=== PATIENT | female | born 1980 | race Caucasian/White ===

== ENCOUNTER 2019-04-09 15:09 | Emergency (ER) | payer OTHER ==
[2019-04-09 15:41] VITALS: BP 125/89; O2SAT 98
[2019-04-09] MEDS ORDERED: TRUVADA 200 MG-300 MG TABLET PO STA (15:46)
[2019-04-09] MEDS ORDERED: ISENTRESS PO SCH ×2 (16:00→22:00)
--- NOTE | 2019-04-09 16:08 | ERPHSYRPT ---
- History of Present Illness Source: patient Exam Limitations: no limitations Patient Subjective Stated Complaint: patient stated Dr Lee bends his needles he uses for local injection and when she started to pickle pumper needle the syringe turned and stuck her in the right palm. Triage Nursing Assessment: pt A/O, states has a needls stick injury in right palm thumb area. small needle hole noted. no active bleeding noted. denies pain or disc. Physician History: Pt is a 38 y/o female that was working with Dr Lee today. When she was cleaning the tray post injection one of the syringes turned, and she was stuck by the needle. She presented to the ED, for an employe work up. Timing/Duration: today Severity: mild Location: hands Possible Causes: no cause identified Associated Symptoms: denies symptoms Allergies/Adverse Reactions: No Known Drug Allergies Allergy (Unverified 04/09/19 15:41) Hx Tetanus, Diphtheria Vaccination/Date Given: Yes Hx Influenza Vaccination/Date Given: Yes Hx Pneumococcal Vaccination/Date Given: No Immunizations Up to Date: Yes - Review of Systems Constitutional: No Fever, No Chills Skin: Other (needle stick in the R palm), No Rash Neurological: No Dizziness, No Focal Weakness, No Sensory Changes - Past Medical History Pertinent Past Medical History: Yes Neurological History: No Pertinent History ENT History: No Pertinent History Cardiac History: Hypertension Respiratory History: No Pertinent History Endocrine Medical History: No Pertinent History Musculoskeletal History: No Pertinent History GI Medical History: GERD History: No Pertinent History Psycho-Social History: No Pertinent History Female Reproductive Disorders: Other Other Medical History: PCOS, mitral valve prolapse - Past Surgical History Past Surgical History: Yes Neuro Surgical History: No Pertinent History Cardiac: No Pertinent History Respiratory: No Pertinent History Gastrointestinal: No Pertinent History Genitourinary: No Pertinent History Musculoskeletal: No Pertinent History Female Surgical History: Section - Social History Smoking Status: Former smoker Exposure to second hand smoke: No Drug Use: none Patient Lives Alone: No - Female History Hx Last Menstrual Period: 2 weeks ago Hx Now: No - Nursing Vital Signs Nursing Vital Signs: Initial Vital Signs Temperature 98.0 F 04/09/19 15:10 Pulse Rate 72 04/09/19 15:10 Respiratory Rate 18 04/09/19 15:10 Blood Pressure 125/89 04/09/19 15:10 O2 Sat by Pulse Oximetry 98 04/09/19 15:10 Pain Scale Pain Intensity 0 - Physical Exam General Appearance: no apparent distress, alert Extremity Exam: normal inspection, normal range of motion Neurologic Exam: alert, oriented x 3, cooperative, normal mood/affect, sensation nml, No motor deficits Skin Exam: normal color, warm, dry, other (needle stick ) SpO2: 98 - Course Nursing assessment & vital signs reviewed: Yes Ordered Tests: Active Orders 24 hr Category Date Time Status Wound Care STAT Care 04/09/19 15:46 Active Medication Summary Generic Name Dose Route Start Last Admin Trade Name Freq PRN Reason Stop Dose Admin Emtricitabine/Tenofovir 1 tablet 04/10/19 10:00 Truvada 200 Mg-300 Mg Tablet PO 04/11/19 10:01 DAILY SURAJ Raltegravir 400 mg 04/09/19 16:00 Isentress PO 05/09/19 15:59 STAT SURAJ Raltegravir 400 mg 04/09/19 22:00 Isentress PO 04/11/19 22:01 BID SURAJ Discontinued Medications Generic Name Dose Route Start Last Admin Trade Name Freq PRN Reason Stop Dose Admin Emtricitabine/Tenofovir 1 tablet 04/09/19 15:46 Truvada 200 Mg-300 Mg Tablet PO 04/09/19 15:47 STAT STA - Progress Progress: unchanged Progress Note: 04/09/19 16:07 Pt was seen and examined. She will get protective meds for HIV, and a dose for home. Labs were sent. Pt should f/u. She is cleared for d/c. Will see patient in: office Counseled pt/family regarding: need for follow-up - Departure Departure Disposition: Home Clinical Impression: Needle stick injury Condition: Stable Critical Care Time: No Referrals: [facility] [Primary Care Provider] - Additional Instructions: F/U with Hello Agent for results. Take meds as ordered.
[2019-04-09 17:08] VITALS: PULSE 76
[2019-04-10] MEDS ORDERED: TRUVADA 200 MG-300 MG TABLET PO SCH (10:00)
[2019-04-11 05:01] LABS: HIV Antigen/Antibody Combo Non Reactive (Non Reactive); Hepatitis B Sur Ag Screen Non Reactive (Non Reactive); Hepatitis B Surface Ab.Quant >1000.00 mIU/mL (0.00-8.49); Hepatitis C Antibody by EIA Non Reactive (Non Reactive)
== END 2019-04-09 17:08 | disposition home or self-care (01) ==
LOC: ER - EH 15:09
DX: S61.431A Puncture wound without foreign body of right hand, initial encounter (principal); W46.1XXA Contact with contaminated hypodermic needle, initial encounter; Y93.F9 Activity, other caregiving; Y92.230 Patient room in hospital as the place of occurrence of the external cause; Y99.0 Civilian activity done for income or pay
CPT/HCPCS: 36415; 86317; 86701; 86702; 86803; 87340; 87389; 99283

== ENCOUNTER 2021-05-19 10:05 | Emergency (ER) | payer OTHER ==
[2021-05-19 10:35] VITALS: O2SAT 98
--- NOTE | 2021-05-19 11:42 | XRAY ---
Indication: Status post fall. Comparison: None Portable AP/lateral left knee demonstrates tiny patella spur. No other bony, articular, or soft tissue abnormalities.
[2021-05-19 11:44] VITALS: BP 124/99; PULSE 86
--- NOTE | 2021-05-19 11:44 | ERPHSYRPT ---
- History of Present Illness Time Seen by Provider: 05/19/21 10:35 Exam Limitations: no limitations Patient Subjective Stated Complaint: " I was in the OR Break out room and I tripped over some broken down boxes causing me to fall down onto my left knee. It doesn't really hurt right now". Triage Nursing Assessment: Pt works at [employer] and was sent down by HR for fall at work. 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 She said she fell onto left knee but landed onto boxes so she believes they "broke her fall". Pt denies pain at this time, knee is tender upon exam. Pt is alert and oriented x3. Skin is pink, warm, and dry. Pt respirations are easy and unlabored. Denies any further injuries or complaints. Physician History: Patient is a 40-year-old female presents to our ED for evaluation of knee pain. Patient was at work here at [facility] [employer] OR. She reportedly went into a break room and tripped over boxes. Patient fell onto her left knee. Patient states the boxes broke the fall. Patient was advised to come to our ED for evaluation. Patient complains of pain at the distal patellar pole and anterolateral knee. No obvious swelling. There is tenderness to palpation over the involved area. No other injuries reported. The fall was mechanical. The fall was not associated with any neuro or cardiovascular symptomology. Patient otherwise feels well. Symptoms are mild in intensity. Patient 2-3 out of 10. Patient declined pain medication. Weightbearing worsens symptoms somewhat. Patient voices no other complaints concerns at this time. Method of Injury: fell Occurred: just prior to arrival Quality: constant Severity of Pain-Max: moderate Severity of Pain-Current: mild Lower Extremities Pain: knee: left Modifying Factors: Improves With: movement Associated Symptoms: none Allergies/Adverse Reactions: No Known Drug Allergies Allergy (Verified 05/19/21 10:35) Home Medications: Famotidine 20 mg PO BID 05/19/21 [History] Metformin HCl 500 mg PO BID 05/19/21 [History] Sertraline HCl [Zoloft] 100 mg PO DAILY 05/19/21 [History] Spironolactone 25 mg PO BID 05/19/21 [History] Hx Tetanus, Diphtheria Vaccination/Date Given: Yes Hx Influenza Vaccination/Date Given: Yes Hx Pneumococcal Vaccination/Date Given: No Immunizations Up to Date: Yes Travel Risk - International Travel Have you traveled outside of the country in past 3 weeks: No - Coronavirus Screening Are you exhibiting any of the following symptoms?: No Close contact with a COVID-19 positive Pt in past 14-21 Days: No - Vaccine Status Have you recieved a Covid-19 vaccination: Yes Center Machine Set Up Operator: Moderna - Vaccination Dates Date of 2cond Vaccination (if applicable): oct 2020 - Review of Systems Constitutional: No Symptoms, No Fever, No Chills Eyes: No Symptoms Ears, Nose, & Throat: No Symptoms Respiratory: No Symptoms, No Cough, No Dyspnea Cardiac: No Symptoms, No Chest Pain, No Edema, No Syncope Abdominal/Gastrointestinal: No Symptoms, No Abdominal Pain, No Nausea, No Vomiting, No Diarrhea Genitourinary Symptoms: No Symptoms, No Dysuria Musculoskeletal: No Symptoms, No Back Pain, No Neck Pain Skin: No Symptoms, No Rash Neurological: No Symptoms, No Dizziness, No Focal Weakness, No Sensory Changes Psychological: No Symptoms Endocrine: No Symptoms Hematologic/Lymphatic: No Symptoms Immunological/Allergic: No Symptoms All Other Systems: Reviewed and Negative - Past Medical History Pertinent Past Medical History: Yes Neurological History: No Pertinent History ENT History: No Pertinent History Cardiac History: Hypertension Respiratory History: No Pertinent History Endocrine Medical History: No Pertinent History Musculoskeletal History: No Pertinent History GI Medical History: GERD History: No Pertinent History Psycho-Social History: Anxiety, Depression Female Reproductive Disorders: Other Other Medical History: PCOS - Past Surgical History Past Surgical History: Yes Neuro Surgical History: No Pertinent History Cardiac: No Pertinent History Respiratory: No Pertinent History Gastrointestinal: No Pertinent History Genitourinary: No Pertinent History Musculoskeletal: No Pertinent History Female Surgical History: Section - Social History Smoking Status: Never smoker Exposure to second hand smoke: No Drug Use: none Patient Lives Alone: No - Female History Hx Last Menstrual Period: 04/24/2021 Hx Now: No - Nursing Vital Signs Nursing Vital Signs: Initial Vital Signs Temperature 97.1 F 05/19/21 10:29 Pulse Rate 84 05/19/21 10:29 Respiratory Rate 18 05/19/21 10:29 Blood Pressure 145/90 05/19/21 10:29 O2 Sat by Pulse Oximetry 98 05/19/21 10:29 Pain Scale Pain Intensity 0 - Physical Exam General Appearance: no apparent distress, alert Eyes, Ears, Nose, Throat Exam: normal ENT inspection, TMs normal Neck Exam: non-tender, supple Cardiovascular/Respiratory Exam: chest non-tender, normal breath sounds, regular rate/rhythm, no respiratory distress Gastrointestinal/Abdominal Exam: non-tender, guarding Back Exam: normal inspection, No vertebral tenderness Hips Exam: bilateral: non-tender, normal inspection, normal range of motion, no evidence of injury Legs Exam: bilateral leg: non-tender, normal inspection, normal range of motion, no evidence of injury Knees Exam: right knee: non-tender, normal inspection, normal range of motion, no evidence of injury, left knee: pain, soft tissue tenderness, other (The involved extremity is neurovascular intact distally. Compartments are soft. Cap refill less than 2 seconds. Slight swelling observed at the left knee. No abrasions or lacerations.) Ankle Exam: bilateral ankle: non-tender, normal inspection, normal range of motion, no evidence of injury Foot Exam: bilateral foot: non-tender, normal inspection, normal range of motion, no evidence of injury Neuro/Tendon Exam: normal sensation, normal motor functions Mental Status Exam: alert, oriented x 3, cooperative Skin Exam: normal color, warm, dry SpO2 Interpretation: normal SpO2: 98 O2 Delivery: Room Air - Course Nursing assessment & vital signs reviewed: Yes - Radiology Exams Knee X-ray Interpretation: Teleradiologist Report (No fractures or dislocations. Small patellar spur.) Ordered Tests: Active Orders 24 hr Category Date Time Status KNEE (1 OR 2 VIEW) Stat Exams 05/19/21 11:07 Completed - Progress Progress: improved Progress Note: Patient states she feels well. She declined pain medication. Patient ambulatory in our ED. Patient requesting to return back to work today. Patient voices no other complaints concerns at this time. X-rays negative for fracture dislocation. No indication for further work-up at this time. Will discharge home. Patient agrees to follow-up with primary care doctor within 48 hours for reevaluation. 05/19/21 11:53 Portions of this note were created with voice recognition technology. There may be grammatical, spelling, punctuation or sound alike errors 05/19/21 11:53 Counseled pt/family regarding: diagnosis, need for follow-up, rad results - Departure Departure Disposition: Home Clinical Impression: Fall, patella spur, Knee contusion Condition: Stable Critical Care Time: No Referrals: [facility]OY[facility],EMPLOYEE [facility] [Primary Care Provider] - Additional Instructions: Discharge/Care Plan DANGELO FITCH was seen on 05/19/21 in the Emergency Room. The patient was counseled regarding Diagnosis,Lab results, Imaging studies, need for follow up and when to return to the Emergency Room. Prescriptions given: Discharge Note I have spoken with the patient and/or caregivers. I have explained the patient's condition, diagnosis and treatment plan based on the information available to me at this time. I have answered the patient's and/or caregiver's questions and addressed any concerns. The patient and/or caregivers have as good understanding of the patient's diagnosis, condition and treatment plan as can be expected at this point. The vital signs have been stable. The patient's condition is stable and appropriate for discharge from the emergency department. The patient will pursue further outpatient evaluation with the primary care physician or other designated or consulting physician as outlined in the discharge instructions. The patient and/or caregivers are agreeable to this plan of care and follow-up instructions have been explained in detail. The patient and/or caregivers have received these instruction. The patient/and or caregivers are aware that any significant change in condition or worsening of symptoms should prompt an immediate return to this or the closest emergency department or call 911.
== END 2021-05-19 12:01 | disposition home or self-care (01) ==
LOC: ED 10:05
DX: M77.30 Calcaneal spur, unspecified foot (principal); S80.02XA Contusion of left knee, initial encounter; W01.198A Fall on same level from slipping, tripping and stumbling with subsequent striking against other object, initial encounter; Y93.89 Activity, other specified; Y92.238 Other place in hospital as the place of occurrence of the external cause; Y99.0 Civilian activity done for income or pay
CPT/HCPCS: 73560; 99283

== ENCOUNTER 2022-07-04 18:35 | Emergency (ER) | payer OTHER ==
[2022-07-04 18:57] VITALS: O2SAT 99
[2022-07-04] MEDS ORDERED: Sodium Chloride 0.9% 1000 ML 1,000 ML IV SCH (19:30)
--- NOTE | 2022-07-04 19:33 | ERPHSYRPT ---
- History of Present Illness Time Seen by Provider: 07/04/22 19:50 Source: patient Exam Limitations: no limitations Patient Subjective Stated Complaint: pt states "I was working on my case when I got a runny feeling. 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 She was finishing her case when she became extremely short of breath. She noted she had slightly elevated blood pressure 147/103 her O2 sats were acceptable but she states she "cannot get a deep breath. She did report that she recently started Concerta and wonders if I could be an etiology for her dyspnea. Timing/Duration: today Activities at Onset: other (Working in surgery) Severity of Dyspnea-Max: moderate Severity of Dyspnea-Current: moderate Possible Cause: no prior episodes Modifying Factors: Improves With: nothing Associated Symptoms: chest pain/discomfort, heaviness Allergies/Adverse Reactions: No Known Drug Allergies Allergy (Verified 07/04/22 18:42) Home Medications: Famotidine 20 mg PO BID 05/19/21 [History] Metformin HCl 500 mg PO BID 05/19/21 [History] Sertraline HCl [Zoloft] 100 mg PO DAILY 05/19/21 [History] Spironolactone 25 mg PO BID 05/19/21 [History] Methylphenidate HCl [Concerta] 18 mg PO 07/04/22 [History] Hx Tetanus, Diphtheria Vaccination/Date Given: Yes Hx Influenza Vaccination/Date Given: Yes Hx Pneumococcal Vaccination/Date Given: No Immunizations Up to Date: Yes Travel Risk - International Travel Have you traveled outside of the country in past 3 weeks: No - Coronavirus Screening Are you exhibiting any of the following symptoms?: Yes Symptoms: Shortness of Breath Close contact with a COVID-19 positive Pt in past 14-21 Days: No - Vaccine Status Have you recieved a Covid-19 vaccination: Yes 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 - Vaccination Dates Date of 2cond Vaccination (if applicable): oct 2020 - Review of Systems Constitutional: No Fever, No Chills Eyes: No Symptoms Ears, Nose, & Throat: No Symptoms Respiratory: No Cough, No Dyspnea Cardiac: No Chest Pain, No Edema, No Syncope Abdominal/Gastrointestinal: No Abdominal Pain, No Nausea, No Vomiting, No Diarrhea Genitourinary Symptoms: No Dysuria Musculoskeletal: No Back Pain, No Neck Pain Skin: No Rash Neurological: No Dizziness, No Focal Weakness, No Sensory Changes Psychological: No Symptoms Endocrine: No Symptoms All Other Systems: Reviewed and Negative - Past Medical History Pertinent Past Medical History: Yes Neurological History: No Pertinent History ENT History: No Pertinent History Cardiac History: Hypertension Respiratory History: No Pertinent History Endocrine Medical History: No Pertinent History Musculoskeletal History: No Pertinent History GI Medical History: GERD History: No Pertinent History Psycho-Social History: Anxiety, Depression Female Reproductive Disorders: Other Other Medical History: PCOS - Past Surgical History Past Surgical History: Yes Neuro Surgical History: No Pertinent History Cardiac: No Pertinent History Respiratory: No Pertinent History Gastrointestinal: No Pertinent History Genitourinary: No Pertinent History Musculoskeletal: No Pertinent History Female Surgical History: Section - Social History Smoking Status: Former smoker Exposure to second hand smoke: No Drug Use: none Patient Lives Alone: No - Female History Hx Now: No - Nursing Vital Signs Nursing Vital Signs: Initial Vital Signs Temperature 98.5 F 07/04/22 18:44 Pulse Rate 90 07/04/22 18:44 Respiratory Rate 16 07/04/22 18:44 Blood Pressure 138/101 07/04/22 18:44 O2 Sat by Pulse Oximetry 99 07/04/22 18:44 Pain Scale Pain Intensity 0 - Physical Exam General Appearance: mild distress, alert Eye Exam: PERRL/EOMI Neck Exam: normal inspection, supple Cardiovascular/Chest Exam: normal heart sounds, regular rate/rhythm Abdominal/Gastrointestinal Exam: soft, No tenderness, No distention, No mass Extremity Exam: non-tender, normal range of motion, normal inspection, no calf tenderness, no pedal edema Neurologic Exam: alert, oriented x 3, cooperative, follow up manager II-XII nml as tested, sensation nml, No motor deficits Skin Exam: normal color, warm, No dry SpO2 Interpretation: normal SpO2: 99 O2 Delivery: Room Air - Course Nursing assessment & vital signs reviewed: Yes EKG Interpreted by Me: RATE (96), Sinus Rhythm, NORMAL AXIS, NORMAL INTERVALS, NORMAL QRS, NORMAL ST-T - Radiology Exams Chest X-ray Interpretation: Interpreted by me, Negative Ordered Tests: Active Orders 24 hr Category Date Time Status Clean Catch Urine Specimen STAT Care 07/04/22 19:32 Active EKG-ER Only STAT Care 07/04/22 19:28 Active IV Insertion STAT Care 07/04/22 19:28 Active CHEST 1 VIEW (PORTABLE) Stat Exams 07/04/22 19:30 Taken CBC W DIFF Stat Lab 07/04/22 19:55 Completed CMP Stat Lab 07/04/22 19:55 Received D-DIMER QUANTITATIVE Stat Lab 07/04/22 19:55 Completed Lactic Acid Stat Lab 07/04/22 20:00 Completed MAGNESIUM Stat Lab 07/04/22 19:55 Received NT PRO BNP Stat Lab 07/04/22 19:55 Received PROTIME WITH INR Stat Lab 07/04/22 19:55 Completed TROPONIN Q4H Lab 07/04/22 19:55 Received TROPONIN Q4H Lab 07/04/22 23:30 Ordered TROPONIN Q4H Lab 07/05/22 03:30 Ordered UA W/RFX CULTURE Stat Lab 07/04/22 Ordered Urine Triage Profile Stat Lab 07/04/22 Ordered VENOUS BLOOD GAS Stat Lab 07/04/22 20:00 Completed Medication Summary Generic Name Dose Route Start Last Admin Trade Name Freq PRN Reason Stop Dose Admin Sodium Chloride 1,000 mls @ 100 mls/hr 07/04/22 19:30 07/04/22 20:03 Sodium Chloride 0.9% 1000 Ml IV 08/03/22 19:29 100 mls/hr .Q10H SURAJ Administration Discontinued Medications Generic Name Dose Route Start Last Admin Trade Name Freq PRN Reason Stop Dose Admin Ondansetron HCl 4 mg 07/04/22 20:01 07/04/22 20:03 Ondansetron Hcl 4 Mg/2 Ml Vial IV 07/04/22 20:02 4 mg STAT ONE Administration Ondansetron HCl Confirm 07/04/22 20:02 Ondansetron Hcl 4 Mg/2 Ml Vial Administered 07/04/22 20:03 Dose 4 mg .ROUTE .STK-MED ONE Lab/Rad Data: Laboratory Result Diagrams 07/04/22 19:55 Laboratory Results 07/04/22 07/04/22 07/04/22 Range/Units 20:00 20:00 19:55 WBC (4.0-10.5) x10^3/uL RBC (4.1-5.4) x10^6/uL Hgb (12.0-16.0) g/dL Hct (35-47) % MCV (78-100) fL MCH (26-32) pg MCHC (32-36) g/dL RDW (11.5-14.0) % Plt Count (150-450) x10^3/uL MPV (7.5-11.0) fL Gran % (36.0-66.0) % Immature Gran % (Auto) (0.00-0.4) % Nucleat RBC Rel Count (0.00-0.1) % Eos # (Auto) (0-0.5) x10^3/uL Immature Gran # (Auto) (0.00-0.03) x10^3u/L Absolute Lymphs (auto) (1.0-4.6) x10^3/uL Absolute Monos (auto) (0.0-1.3) x10^3/uL Absolute Nucleated RBC (0.00-0.01) x10^3u/L Lymphocytes % (24.0-44.0) % Monocytes % (0.0-12.0) % Eosinophils % (0.00-5.0) % Basophils % (0.0-0.4) % Absolute Granulocytes (1.4-6.9) x10^3/uL Basophils # (0-0.4) x10^3/uL PT (9.4-12.5) SECONDS INR (0.8-3.0) D-Dimer (0.0-0.50) mg/L pO2/FiO2 Ratio 21.0 % VBG pH 7.49 H (7.32-7.42) VBG pCO2 at Pat Temp 27 L (42-55) mm/Hg VBG pO2 at Pat Temp 63 H (25-40) mm/Hg VBG HCO3 20.6 L (22-28) meq/L VBG O2 Sat (Caitlyn) 94.4 L (95-100) VBG Base Excess -1.6 (-2.0-2.0) VBG Hemoglobin 12.4 VBG Carboxyhemoglobin 3.6 (0.0-6.9) % T HGB POC Potassium 3.5 (3.5-5.1) Lactic Acid 1.3 (0.4-2.0) Influenza Type A Ag NEGATIVE (NEGATIVE) Influenza Type B Ag NEGATIVE (NEGATIVE) RSV (PCR) NEGATIVE (Negative) SARS-CoV-2 (PCR) NEGATIVE (NEGATIVE) 07/04/22 07/04/22 Range/Units 19:55 19:55 WBC 10.2 (4.0-10.5) x10^3/uL RBC 4.73 (4.1-5.4) x10^6/uL Hgb 11.8 L (12.0-16.0) g/dL Hct 37.4 (35-47) % MCV 79.1 (78-100) fL MCH 24.9 L (26-32) pg MCHC 31.6 L (32-36) g/dL RDW 14.6 H (11.5-14.0) % Plt Count 492 H (150-450) x10^3/uL MPV 9.8 (7.5-11.0) fL Gran % 74.8 H (36.0-66.0) % Immature Gran % (Auto) 0.4 (0.00-0.4) % Nucleat RBC Rel Count 0.0 (0.00-0.1) % Eos # (Auto) 0.06 (0-0.5) x10^3/uL Immature Gran # (Auto) 0.04 H (0.00-0.03) x10^3u/L Absolute Lymphs (auto) 1.77 (1.0-4.6) x10^3/uL Absolute Monos (auto) 0.65 (0.0-1.3) x10^3/uL Absolute Nucleated RBC 0.00 (0.00-0.01) x10^3u/L Lymphocytes % 17.3 L (24.0-44.0) % Monocytes % 6.4 (0.0-12.0) % Eosinophils % 0.6 (0.00-5.0) % Basophils % 0.5 (0.0-0.4) % Absolute Granulocytes 7.66 H (1.4-6.9) x10^3/uL Basophils # 0.05 (0-0.4) x10^3/uL PT 10.7 (9.4-12.5) SECONDS INR 1.01 (0.8-3.0) D-Dimer 0.27 (0.0-0.50) mg/L pO2/FiO2 Ratio % VBG pH (7.32-7.42) VBG pCO2 at Pat Temp (42-55) mm/Hg VBG pO2 at Pat Temp (25-40) mm/Hg VBG HCO3 (22-28) meq/L VBG O2 Sat (Caitlyn) (95-100) VBG Base Excess (-2.0-2.0) VBG Hemoglobin VBG Carboxyhemoglobin (0.0-6.9) % T HGB POC Potassium (3.5-5.1) Lactic Acid (0.4-2.0) Influenza Type A Ag (NEGATIVE) Influenza Type B Ag (NEGATIVE) RSV (PCR) (Negative) SARS-CoV-2 (PCR) (NEGATIVE) - Progress Progress: improved Air Movement: good Blood Culture(s) Obtained: No Antibiotics given: No - Departure Departure Disposition: Home Clinical Impression: Dyspnea Condition: Stable Critical Care Time: No Referrals: TAJ GAGNON [Primary Care Provider] - Follow up/PCP as directed Instructions: Shortness of Breath (Dyspnea) (DC) Prescriptions: Ondansetron ODT 4 MG [Zofran Odt 4 mg] 4 mg PO Q6H PRN PRN #10 tablet PRN Reason: Vomiting
[2022-07-04] MEDS ORDERED: Zofran 4 MG/2 ML VIAL IV ONE (20:01)
[2022-07-04] MEDS ORDERED: Sodium Chloride 0.9% 1000 ML 1,000 ML ONE (20:02)
[2022-07-04] MEDS ORDERED: Zofran 4 MG/2 ML VIAL ONE (20:02)
[2022-07-04 20:03] LABS: VBG BASE EXCESS -1.6 (-2.0-2.0); VBG CARBOXYHEMOGLOBIN 3.6 % T HGB (0.0-6.9); VBG HCO3- 20.6 meq/L (22-28); VBG HEMOGLOBIN 12.4; VBG O2 SATURATION 94.4 (95-100); VBG POTASSIUM 3.5 (3.5-5.1); VBG pH 7.49 (7.32-7.42)
[2022-07-04 20:23] LABS: Absolute Neutrophil Ct (ANC) 7.66 x10^3/uL (1.4-6.9); Basophil (Absolute #) 0.05 x10^3/uL (0-0.4); Eosinophil % 0.6 % (0.00-5.0); Eosinophil (Absolute #) 0.06 x10^3/uL (0-0.5); Hematocrit 37.4 % (35-47); Hemoglobin 11.8 g/dL (12.0-16.0); Lymphocyte (Absolute #) 1.77 x10^3/uL (1.0-4.6); Lymphocytes % 17.3 % (24.0-44.0); Mean Cell Volume 79.1 fL (78-100); Mean Corpuscular Hemoglobin 24.9 pg (26-32); Mean Corpuscular Hgb Concent. 31.6 g/dL (32-36); Mean Platelet Volume 9.8 fL (7.5-11.0); Monocyte (Absolute #) 0.65 x10^3/uL (0.0-1.3); Monocytes % 6.4 % (0.0-12.0); Neutrophil % 74.8 % (36.0-66.0); Platelet Count 492 x10^3/uL (150-450); Red Blood Count 4.73 x10^6/uL (4.1-5.4); Red Cell Distribution Width 14.6 % (11.5-14.0); White Blood Count 10.2 x10^3/uL (4.0-10.5)
[2022-07-04 20:43] LABS: D-DIMER QUANTITATIVE 0.27 mg/L (0.0-0.50); INR 1.01 (0.8-3.0); PROTIME 10.7 SECONDS (9.4-12.5)
[2022-07-04 20:55] VITALS: PULSE 75
[2022-07-04 21:00] LABS: INFLUENZA A NEGATIVE (NEGATIVE); INFLUENZA B NEGATIVE (NEGATIVE); RESPIRATORY SYNCTIAL VIRUS NEGATIVE (Negative); SARS-CoV-2 Xpert Express NEGATIVE (NEGATIVE)
[2022-07-04] MEDS ORDERED: ZOFRAN ODT 4 MG ONE (21:13)
[2022-07-04] MEDS ORDERED: ZOFRAN ODT 4 MG PO ONE (21:14)
[2022-07-04 21:20] VITALS: BP 152/85
[2022-07-04 21:24] LABS: ALBUMIN 4.4 g/dL (3.5-5.0); ALKALINE PHOSPHATASE 89 U/L (38-126); ANION GAP 14.2 MEQ/L (5-15); BLOOD UREA NITROGEN 19 mg/dL (7-17); CHLORIDE 104 mmol/L (98-107); Calcium 9.6 mg/dL (8.4-10.2); Carbon Dioxide 24 mmol/L (22-30); Creatinine 1 0.93 mg/dL (0.52-1.04); EST GLOMERULAR FILTRATION RATE > 60.0 ML/MIN; Glucose 107 mg/dL (74-106); NT PRO BNP 45.3 pg/mL (0-450); Potassium 3.6 mmol/L (3.5-5.1); SGOT/AST 21 U/L (14-36); SGPT/ALT 18 U/L (0-35); SODIUM 139 mmol/L (137-145); Total Protein 7.8 g/dL (6.3-8.2)
--- NOTE | 2022-07-05 08:46 | XRAY ---
Indication: Chest pain and short of breath. Comparison: None Portable chest demonstrates normal heart and lungs. Bony thorax intact.
== END 2022-07-04 21:30 | disposition home or self-care (01) ==
LOC: ED 18:35
DX: R06.00 Dyspnea, unspecified (principal); R07.9 Chest pain, unspecified; I10 Essential (primary) hypertension; Z79.84 Long term (current) use of oral hypoglycemic drugs; Z79.899 Other long term (current) drug therapy
CPT/HCPCS: 0241U; 36000; 36415; 71045; 80053; 82805; 83605; 83735; 83880; 84484; 85025; 85379; 85610; 93005; 96374; 99284; J2405; Q0162